=== PATIENT | female | born 1985 | race Caucasian/White ===

== ENCOUNTER 2016-10-16 10:30 | Emergency (ER) | payer SELFPAY ==
[2016-10-16 12:16] VITALS: BP 124/69
--- NOTE | 2016-10-16 12:25 | UC ---
Respiratory Complaint HPI - HPI Summary HPI Summary: "X2 WEEKS PT HAS HAD SINUS CONGESTION, NASAL CONGESTION WITH BLOODY MUCOUS. PAIN IN RIBS WITH COUGH. DOES NOT KNOW IF SHE HAS HAD A FEVER, HASN'T CHECKED HER TEMPERATURE." She also had 2 lower left molar teeth removed a few weeks ago and was given tetracycline by the dentist for pockets of purulent pockets with bloody d/c. She finished that over 7 days ago and still has bloody d/c. Has appt with dentist upcoming for rpt. -she hasnt smoked in 1 week. Used her son's albuterol nebulizer with relief. c/ o purulent thick production. + wheezing. no h/o asthma. - History of Current Complaint Chief Complaint: UCGeneralIllness Stated Complaint: COUGH,ORAL COMPLAINT,BODY ACHES Time Seen by Provider: 10/16/16 12:23 Hx Last Menstrual Period: 10/02/2016 - Allergies/Home Medications Allergies/Adverse Reactions: Allergies Allergy/AdvReac Type Severity Reaction Status Date / Time Penicillin V Allergy Unknown See Comment Verified 10/16/16 12:16 [From Christiano BERTRAND] Home Medications: Home Medications Gabapentin CAP(*) [Neurontin 300 CAP(*)] 300 mg PO TID 10/16/16 [History Confirmed 10/16/16] traZODone TAB* [Desyrel TAB*] 100 mg PO BEDTIME PRN 10/16/16 [History Confirmed 10/16/16] PMH/Surg Hx/FS Hx/Imm Hx Previously Healthy: Yes - Surgical History Surgical History: Yes Surgery Procedure, Year, and Place: GALLBLADDER REMOVED 06/2016 - Family History Known Family History: Positive: Respiratory Disease - asthma in Mom and son - Social History Alcohol Use: None Substance Use Type: None Smoking Status (MU): Current Every Day Smoker Type: Cigarettes Have You Smoked in the Last Year: Yes Household Exposure Type: Cigarettes Review of Systems Constitutional: Chills, Fatigue Skin: Negative Eyes: Negative ENT: Negative, Sore Throat, Other - left mouth sores Respiratory: Cough Cardiovascular: Negative Gastrointestinal: Negative Genitourinary: Negative Motor: Negative Neurovascular: Negative Musculoskeletal: Negative Neurological: Negative Psychological: Negative All Other Systems Reviewed And Are Negative: Yes Physical Exam Triage Information Reviewed: Yes Appearance: Well-Nourished, Ill-Appearing Vital Signs: Initial Vital Signs Temp 99.2 F 10/16/16 12:07 Pulse 97 10/16/16 12:07 Resp 18 10/16/16 12:07 BP 124/69 10/16/16 12:07 Pulse Ox 100 10/16/16 12:07 Vital Signs Reviewed: Yes Eye Exam: Normal ENT: Positive: Hearing grossly normal, Pharyngeal erythema - + PND, no exudate, TMs normal, Other: - speaks full sentences Dental: Positive: Other: - left lower molars extracted, no obvious sores appreciated Neck exam: Normal Neck: Positive: Supple, Nontender, No Lymphadenopathy Respiratory: Positive: No respiratory distress, No accessory muscle use, Decreased breath sounds, Rhonchi, Wheezing. Negative: Crackles, Stridor Cardiovascular Exam: Normal Cardiovascular: Positive: RRR, No Murmur, Pulses Normal, Brisk Capillary Refill Abdominal Exam: Normal Abdomen Description: Positive: Nontender, Soft Musculoskeletal Exam: Normal Neurological Exam: Normal Psychological Exam: Normal Skin Exam: Normal UC Diagnostic Evaluation - Laboratory O2 Sat by Pulse Oximetry: 100 Respiratory Course/Dx - Course Course Of Treatment: CXR - RLL pneumonia. Albuterol neb - feels improved. better air movement throughout with decreased wheezing. - Differential Dx/Diagnosis Differential Diagnosis/HQI/PQRI: Asthma, Bronchitis, Lower Resp Infection Provider Diagnoses: pneumonia Discharge - Discharge Plan Condition: Stable Disposition: HOME Prescriptions: Albuterol 2.5MG/3ML (0.083%)* [Ventolin 2.5 MG/3 ML NEB.ROMAN*] 2.5 mg INH Q4H #1 neb.roman Clarithromycin TAB* [Biaxin 500 MG TAB*] 500 mg PO BID #20 tab Methylprednisolone [Medrol Dosepak 4 MG*] 4 mg PO DAILY #1 reba Patient Education Materials: Pneumonia (ED) Referrals: Roxanne Antonio MD [Medical Doctor] - 2 Days Additional Instructions: Make sure that you get repeat cehst xray in 4-6 wks for follow up despite feeling back to normal. take a probiotic daily while on the antibiotic. fluids and rest. You should be seen if your symptoms worsen or persist.
[2016-10-16] MEDS ORDERED: Albuterol 2.5 MG/3 ML NEB.SOL* (0.083%) INH ONE (12:32)
--- NOTE | 2016-10-16 12:59 | RAD ---
HISTORY: Coughing, wheezing COMPARISONS: None VIEWS: 2: Frontal dual-energy and lateral views of the chest. FINDINGS: CARDIOMEDIASTINAL SILHOUETTE: The cardiomediastinal silhouette is normal. MAURA: The maura are normal. PLEURA: The costophrenic angles are sharp. No pleural abnormalities are noted. LUNG PARENCHYMA: There is patchy alveolar opacification of the right lung base] chronic angle. ABDOMEN: The upper abdomen is clear. There is no subphrenic gas. BONES AND SOFT TISSUES: No bone or soft tissue abnormalities are noted. OTHER: None. IMPRESSION: PATCHY RIGHT BASILAR CONSOLIDATION. RECOMMEND FOLLOW-UP UNTIL RESOLUTION TO EXCLUDE UNDERLYING PULMONARY PARENCHYMAL PATHOLOGY
== END 2016-10-16 13:38 | disposition home or self-care (01) ==
LOC: UCCORT 10:30
DX: J18.9 Pneumonia, unspecified organism (principal); Z90.49 Acquired absence of other specified parts of digestive tract; Z88.0 Allergy status to penicillin; F17.210 Nicotine dependence, cigarettes, uncomplicated
CPT/HCPCS: 71020; 99202; G0463

== ENCOUNTER 2017-11-28 09:54 | Day surgery (SDC) | payer OTHER ==
[~2017-11-28 09:54] MED LIST: Buffered Lidocaine 0.9% SYRIN* 5 ML/SYR SYRINGE INTRADERM ONE; Dexamethasone TAB* 4 MG PO ONE; DiMENhydriNATE IV* 50 MG/ML VIAL IV PUSH PRN; Famotidine IV* 10 MG/ML 2 ML (20 mg) IV ONE; Morphine INJ* 2 MG/ML 1 ML CARPUJECT IV PRN; Naloxone* 0.4 MG/ML 1 ML VIAL IV PRN; PROCHLORPERAZINE INJ 5 MG/ML 2 ML VIAL IV PRN; Scopolamine 1.5 mg* PATCH TRANSDERM PRN; fentaNYL* 50 MCG/ML 2 ML VIAL (100 MCG VIAL) IV PRN; oxyCODONE/Acetamin 5/325 MG* TAB PO PRN
[2017-11-28] MEDS ORDERED: Midazolam* 1 MG/ML 5 ML VIAL (5 MG) ONE (10:09)
[2017-11-28] MEDS ORDERED: fentaNYL* 50 MCG/ML 2 ML VIAL (100 MCG VIAL) ONE ×2 (10:09→11:41)
[2017-11-28] MEDS ORDERED: Famotidine IV* 10 MG/ML 2 ML (20 mg) ONE (10:38)
[2017-11-28] MEDS ORDERED: Dexamethasone TAB* 4 MG ONE (10:39)
[2017-11-28] MEDS ORDERED: Clindamycin 900 MG IVPREMIX(* 900 MG/50 ML SDV IV ONE (10:39)
[2017-11-28] MEDS ORDERED: Ondansetron ODT TAB* 4 MG ONE (10:39)
[2017-11-28] MEDS: Ondansetron INJ* 2 MG/ML VIAL ONE (10:50)
[2017-11-28] MEDS ORDERED: Bupivacaine 0.5% SDV PF* 30ML VIAL ONE (10:54)
[2017-11-28] MEDS ORDERED: Propofol* 10 MG/ML 20 ML BTL IV PUSH ONE (11:34)
[2017-11-28] MEDS ORDERED: Ketorolac INJ* 30 MG/ML 1 ML VIAL ONE (11:34)
[2017-11-28] MEDS ORDERED: PROCHLORPERAZINE INJ 5 MG/ML 2 ML VIAL ONE (11:34)
[2017-11-28] MEDS ORDERED: Lidocaine 2% PF * 5 ML VIAL ONE (11:34)
[2017-11-28 13:15] VITALS: BP 124/80
--- NOTE | 2017-11-28 20:22 | OP ---
DATE OF OPERATION: 11/28/17 - [facility] DATE OF : 85 SURGEON: Preston Nagel MD SAMPLE GRINDER: KRISTAN Resendiz. An human resources office assistant was needed for the procedure to aid in positioning of the arm and retraction. ANESTHESIOLOGIST: Dr. Wallace. ANESTHESIA: General. PRE-OP DIAGNOSES: 1. Right carpal tunnel syndrome. 2. Right cubital tunnel syndrome. POST-OP DIAGNOSES: 1. Right carpal tunnel syndrome. 2. Right cubital tunnel syndrome. OPERATIVE PROCEDURE: 1. Right open carpal tunnel release. 2. Right in situ cubital tunnel release. INDICATIONS: Sanford has electrodiagnostic and clinical carpal tunnel syndrome and clinical cubital tunnel syndrome. We talked about her treatment options. She understands there is a risk that she will still have persistent symptoms despite surgery. She understands there is a risk of wound problems, infection, neuritis and pain. She wants to proceed. She understands there is a risk that , with an in situ release, she may have to come back at a subsequent date for a transposition. ESTIMATED BLOOD LOSS: 2 mL. COMPLICATIONS: None. FINDINGS: See above and below. DESCRIPTION OF PROCEDURE: Sanford was seen in the preoperative holding area. The correct side, site, and procedure were identified. We came back to the operating room, the arm was prepped and draped in the usual fashion. A time- out was performed. I exsanguinated the arm with an Esmarch and the tourniquet was inflated to 250 mmHg. I then made a longitudinal 2 to 3 cm incision in the standard location for an open carpal tunnel release. Dissection was carried down through subcutaneous tissue and palmar fascia. The fascia was released proximally and distally with tenotomy scissors. I then released the transverse carpal ligament just off the radial aspect of the hook of the hamate. The release was completed distally with tenotomy scissors and proximally I released the subcutaneous tissues and retracted that volarly and ulnarly with a Judith retractor and then released the remainder of the transverse carpal ligament and the distal antebrachial fascia with tenotomy scissors under direct visualization. Once the release was complete, there was absolutely no compression on the nerve. We irrigated out the wound and the skin was closed with 4-0 nylon suture. I then made a curvilinear incision over the posteromedial elbow with the arm abducted and externally rotated. Dissection was carried down. The medial antebrachial cutaneous nerve was identified and protected throughout the case. I released the fascia overlying the nerve just proximal to the Pastrana ligament. This was released past the arcade of [place] and then I came distally and released the [place] ligament. I released the superficial FCU fascia. I split the two heads of the FCU and released the subfascial layer taking care to preserve the motor branches to the two heads of the FCU. At this point, the nerve was very nicely decompressed. I flexed and extended the elbow. There was no subluxation of the nerve. Everything was looking good. We irrigated out the wound. The subcutaneous tissue was reapproximated with 3- 0 Vicryl and skin was closed with 3-0 Monocryl suture and Steri-Strips. 0.5% Marcaine was infiltrated around both of the operative wounds. The wounds were dressed with 4x4 and ABD at the elbow. Sterile Webril and then Nael bandages were applied. Tourniquet was deflated and the hand pinked up immediately. She was taken to the recovery room in stable condition. [id number]/CPS #: [id number] STACEY
[2017-12-01] MEDS ORDERED: Scopolamine PATCH Remove* 1 NOTE MISC PATCH OFF ONE (07:56)
== END 2017-11-28 13:17 | disposition home or self-care (01) ==
LOC: OR 09:54
PROVIDERS: ATTEND Orthopaedic Surgery Hand Surgery
DX: G56.01 Carpal tunnel syndrome, right upper limb (principal); G56.21 Lesion of ulnar nerve, right upper limb; K21.9 Gastro-esophageal reflux disease without esophagitis; D64.9 Anemia, unspecified; F41.8 Other specified anxiety disorders; Z72.0 Tobacco use; G25.81 Restless legs syndrome
CPT/HCPCS: 81025; A9270-GY; J0780; J1885; J2250; J2704; J3010; J8540

== ENCOUNTER → 2018-07-24 10:59 | Day surgery (SDC) | payer OTHER ==
[~2018-07-24 10:59] MED LIST changes: +Acetaminophen TAB* 325 MG PO PRN; -Buffered Lidocaine 0.9% SYRIN* 5 ML/SYR SYRINGE INTRADERM ONE; +Buffered Lidocaine 1% SYRIN* 1 ML/SYRINGE INTRADERM ONE; -Dexamethasone TAB* 4 MG PO ONE; +Famotidine IV* 10 MG/ML 2 ML (20 mg) ONE; +Ketorolac INJ* 30 MG/ML 1 ML VIAL ONE; +Lactated Ringers 1000 ML Bag* 1,000 ML IV SCH; +Lidocaine 2% PF * 5 ML VIAL ONE; +Midazolam* 1 MG/ML 5 ML VIAL (5 MG) ONE; -Morphine INJ* 2 MG/ML 1 ML CARPUJECT IV PRN; +Ondansetron INJ* 2 MG/ML VIAL ONE; -PROCHLORPERAZINE INJ 5 MG/ML 2 ML VIAL IV PRN; +Propofol* 10 MG/ML 20 ML BTL ONE; +ROPIVACAINE 5 MG/ML 30 ML BTL (0.5%) ONE; +Ropivacaine* 2 MG/ML 20 ML VIAL (0.2%) ONE; -Scopolamine 1.5 mg* PATCH TRANSDERM PRN; -fentaNYL* 50 MCG/ML 2 ML VIAL (100 MCG VIAL) IV PRN; +fentaNYL* 50 MCG/ML 2 ML VIAL (100 MCG VIAL) ONE; +oxyCODONE TAB* 5 MG TAB PO PRN; -oxyCODONE/Acetamin 5/325 MG* TAB PO PRN
[2018-07-24 15:01] VITALS: BP 134/80
--- NOTE | 2018-07-24 20:37 | OP ---
DATE OF OPERATION: 07/24/18 - [facility] DATE OF : 85 SURGEON: Preston Nagel MD CORE WINDER MACHINE OPERATOR: KRISTAN Oconnell ANESTHESIOLOGIST: Dr. Vasquez. ANESTHESIA: Local MAC. PRE-OP DIAGNOSIS: Left trigger thumb. POST-OP DIAGNOSIS: Left trigger thumb. OPERATIVE PROCEDURE: Left trigger thumb release of A1 ana paula. INDICATIONS: Sanford has trigger thumb. She now presents for surgical release of the left trigger thumb. ESTIMATED BLOOD LOSS: 1 mL. COMPLICATIONS: None. FINDINGS: See above and below. DESCRIPTION OF PROCEDURE: Sanford was seen in the preoperative holding area. The correct side, site, and procedure were identified. We came back to the operating room where the arm was prepped and draped in the usual fashion and a time-out was performed. A 0.5% ropivacaine was infiltrated out on the operative area. The arm was exsanguinated and the tourniquet was infiltrated to 250 mmHg. I then made a 1- cm incision transversally over the MP joint flexion crease. Full-thickness flaps were raised off the flexor tendon sheath. The digital nerves were protected. I released A1 ana paula with a 15 blade and then completed the release distally and proximally with the tenotomy scissors, taking care to protect the digital nerves. The wound was irrigated out. The skin was closed with 4-0 nylon suture. Soft dressings were applied. Tourniquet was deflated. She was taken to the recovery room in stable condition. [id number]/CPS #: [id number] MTDD
== END | disposition home or self-care (01) ==
LOC: OR 10:59
PROVIDERS: ATTEND Orthopaedic Surgery Hand Surgery
DX: M65.312 Trigger thumb, left thumb (principal); K21.9 Gastro-esophageal reflux disease without esophagitis; F41.8 Other specified anxiety disorders; Z72.0 Tobacco use; Z88.0 Allergy status to penicillin
CPT/HCPCS: 81025; J1885; J2250; J2405; J2704; J2795; J3010